=== PATIENT | female | born 1945 | race Caucasian/White ===

== ENCOUNTER 2024-05-01 11:21 | Emergency (ER) | payer OTHER ==
[~2024-05-01] VITALS: Ht 167.6 cm; Wt 69.0 kg
[~2024-05-01 11:21] MED LIST: AMLO5TAB88 PO; LOSA1TAB37 PO; NAPR-1495 PO; PRAV20TA57 PO; SUCR1TAB PO; TRAZ-251 PO
[2024-05-01 11:25] VITALS: O2SAT 98
[2024-05-01] MEDS: SODIUM CHLORIDE 0.9% 1,000 ML IV ONE (12:30)
[2024-05-01 12:54] LABS: BASOPHILS % 0.5 % (0.0-2.0); EOSINOPHILS % 1.2 % (0.0-5.0); HEMATOCRIT. 32.8 % (36.0-48.0); HEMOGLOBIN. 10.7 g/dL (12.0-16.0); LYMPHOCYTES % 18.1 % (20.0-50.0); MEAN CORPUSCULAR HEMOGLOBIN 28.9 pg (28.0-32.0); MEAN CORPUSCULAR HGB CONC 32.7 g/dL (31.0-37.0); MEAN CORPUSCULAR VOLUME 88.4 fL (81.0-99.0); MEAN PLATELET VOLUME 6.8 fl (7.4-10.4); NEUTROPHILS % 72.2 % (40.0-76.0); PLATELET 425 x1000/uL (130-400); RED BLOOD CELL COUNT 3.71 mill/uL (4.2-5.4); RED CELL DISTRIBUTION WIDTH 15.6 % (11.6-14.6)
[2024-05-01 13:01] LABS: CALCIUM 8.9 mg/dL (8.7-10.4); CARBON DIOXIDE 26 mEq/L (21-32); CHLORIDE 106 mEq/L (98-107); POTASSIUM 4.3 mEq/L (3.5-5.1); SODIUM 139 mEq/L (136-145)
[2024-05-01 13:05] LABS: CREATININE 0.8 mg/dL (0.6-1.0); GLUCOSE 112 mg/dL (70-105); TROPONIN I HIGH SENSITIVITY 9 ng/L (3.0-34); UREA NITROGEN BLOOD 21 mg/dL (9-23)
[2024-05-01 13:07] LABS: ALANINE AMINOTRANSFERASE 62 IU/L (10-49); ALBUMIN 3.6 g/dL (3.2-4.8); ASPARTATE AMINOTRANSFERASE 82 IU/L (<34); BILIRUBIN DIRECT 0.5 mg/dL (<=3.0)
[2024-05-01 13:08] LABS: BILIRUBIN TOTAL 0.9 mg/dL (0.1-1.0); PROTEIN TOTAL 7.3 g/dL (6.0-8.3)
[2024-05-01 14:32] LABS: CLARITY URINE CLOUDY (CLEAR); COLOR URINE YELLOW (YELLOW); GLUCOSE URINE NEGATIVE (NEGATIVE); KETONES URINE NEGATIVE (NEGATIVE); LEUKOCYTE ESTERASE URINE 1+ (NEGATIVE); NITRITE URINE NEGATIVE (NEGATIVE); OCCULT BLOOD URINE NEGATIVE (NEGATIVE); PH URINE 6.5 (4.5-8.0); PROTEIN URINE NEGATIVE (NEGATIVE); SPECIFIC GRAVITY URINE 1.006 (1.005-1.030)
[2024-05-01 14:40] VITALS: BP 142/57; PULSE 77; RESP 14; TEMP 36.66960; O2SAT 98
[2024-05-01 14:43] LABS: BACTERIA URINE 1+; RBC URINE 0-2 /hpf (0-2); SQUAMOUS EPITHELIAL CELL URINE 3+ /lpf (RARE/1+); YEAST URINE NONE SEEN
== END 2024-05-01 15:10 | disposition home or self-care (01) ==
LOC: ER 11:21
DX: R55 Syncope and collapse (principal); R74.8 Abnormal levels of other serum enzymes; I10 Essential (primary) hypertension
CPT/HCPCS: 99284; 96360; 70450; 71045; 80076; 80048; 81003; 83880; 85025; 84484; 36415; J7030